=== PATIENT | female | born 1970 | race Caucasian/White ===

== ENCOUNTER 2017-06-07 17:09 | Emergency (ER) | payer OTHER ==
[~2017-06-07 17:09] MED LIST: Potassium Chloride LIQUID* 20 MEQ PACKET PO ONE
[2017-06-07] MEDS ORDERED: NS 0.9% 500 ML* 500 ML IV ONE (19:26)
[2017-06-07 19:51] LABS: ABS Basophils 0.1 10^3/ul (0-0.2); ABS Eosinophils 0.2 10^3/ul (0-0.6); ABS Lymphocytes 2.3 10^3/ul (1.0-4.8); ABS Monocytes 0.6 10^3/ul (0-0.8); ABS Neutrophils 5.4 10^3/ul (1.5-7.7); ABS Nucleated RBC 0 10^3/ul; Eosinophil % 2.1 % (0-6); Hematocrit 40 % (35-47); Hemoglobin 13.7 g/dl (12.0-16.0); Lymphocyte % 26.5 % (25-47); Mean Corpuscular HGB Conc 34 g/dl (31-36); Mean Corpuscular Hemoglobin 31 pg (27-31); Mean Corpuscular Volume 89 fL (80-97); Mean Platelet Volume 7 um3 (7.4-10.4); Nucleated Red Blood Cells % 0; Platelet Count 274 10^3/ul (150-450); Red Blood Count 4.48 10^6/ul (4.0-5.4); Red Cell Distribution Width 13 % (10.5-15); White Blood Count 8.5 10^3/ul (3.5-10.8)
[2017-06-07 19:57] LABS: INR 0.81 (0.77-1.02)
[2017-06-07 20:05] LABS: EGFR Non-African American 81.1 (>60)
[2017-06-07] MEDS ORDERED: Potassium Chloride LIQUID* 20 MEQ PACKET PO ONE (21:00)
--- NOTE | 2017-06-07 21:18 | RAD ---
INDICATION: Rectal bleeding COMPARISON: None TECHNIQUE: Erect and supine views of the abdomen are submitted. FINDINGS: Bones: There are no acute bony findings. Soft tissues: The soft tissues appear normal. The psoas margins are sharp. Bowel gas pattern: Normal Calcifications: There are no abnormal calcifications. Other: None IMPRESSION: NO ACUTE DIAGNOSTIC FINDINGS.
[2017-06-08] MEDS ORDERED: Iohexol 300* (CONTRAST) 10 ML SDV IV ONE (01:48)
[2017-06-08 03:21] VITALS: BP 112/74
--- NOTE | 2017-06-08 08:12 | RAD ---
INDICATION: Bloody stools. RIGHT-sided abdominal pain. Previous abscess excision at the midline abdomen inferior to the umbilicus. COMPARISON: Abdomen radiograph of one day prior. TECHNIQUE: Multidetector CT images were obtained from the lung bases to the ischial tuberosities with 90 mL Omnipaque 300 IV and oral contrast. Multiplanar reformation. REPORT: Unremarkable visualized inferior thorax. Decreased density of the liver consistent with fatty infiltration. No focal hepatic lesions or biliary dilatation. Post cholecystectomy. Unremarkable pancreas and spleen. Negative for CT abnormality of the upper GI or small bowel. Normal diameter appendix without suggestion of mural calcification in the mid segment. Nonetheless the appendix is opacified with contrast and contains gas extending to the tip. Negative for periappendiceal inflammatory change. Enteric contrast extends to the rectum. No CT abnormality of the colon. Negative for ascites, free air, hernias. Normal adrenal glands. Unremarkable kidneys with symmetric nephrograms and pyelograms. Unremarkable nondilated ureters and urinary bladder as well as the anteverted uterus and adnexal regions. Normal sized periaortic lymph nodes visualized measuring up to 0.7 cm short axis. Negative for lymphadenopathy. Normal diameter abdominal aorta and iliac arteries. Physiologic distention of the IVC. Lumbar sacral spine degenerative spondylosis most prominent at L4-L5 without suggestion of acquired central canal stenosis. Mild bilateral L4-L5 foraminal stenosis secondary to degenerative spondylosis. Negative for suspicious focal osseous lesions. IMPRESSION: 1. Fatty infiltration of the liver. 2. Post cholecystectomy. 3. Suggestion of potential mural calcification of the normal diameter appendix without evidence for acute appendicitis. 4. Absence of stool within the colon may reflect diarrhea of disease. Negative for colonic inflammatory change or conspicuous focal lesion.
--- NOTE | 2017-06-24 01:24 | ED ---
Tri David Emily, scribed for Riky Allison MD on 06/07/17 at 1922 . GI/ HPI - HPI Summary HPI Summary: This patient is a 46 year old F presenting to [facility] accompanied by family with a chief complaint of hematochezia and increased bowel movement frequency that began yesterday. The patient rates the pain 8/10 in severity. Symptoms aggravated by nothing. Symptoms alleviated by nothing. Patient reports nausea, lightheadedness, suprapubic abdominal pain, and fatigue. Patient denies fever, chills, and vomiting. Pt denies having similar symptoms previously. - History of Current Complaint Chief Complaint: EDRectalPain Stated Complaint: RECTAL BLEEDING,LIGHTHEADEDNESS Hx Obtained From: Patient Onset/Duration: Started Days Ago, Still Present Timing: Constant, Lasting Days Severity: Severe Current Severity: Severe Pain Intensity: 8 Location of Pain: Suprapubic Associated Signs and Symptoms: Positive: Other: - Positive nausea, lightheadedness, suprapubic abdominal pain, and fatigue. Negative fever, chills , and vomiting Aggravating Factor(s): Nothing Alleviating Factor(s): Nothing - Allergy/Home Medications Allergies/Adverse Reactions: Allergies Allergy/AdvReac Type Severity Reaction Status Date / Time No Known Allergies Allergy Verified 06/07/17 19:00 Home Medications: Home Medications FLUoxetine CAP* [PROzac CAP*] 40 mg PO DAILY 06/07/17 [History Confirmed ] Levothyroxine TAB* [Synthroid TAB*] 75 mcg PO DAILY 06/07/17 [History Confirmed 06/07/17] PMH/Surg Hx/FS Hx/Imm Hx Previously Healthy: No Opthamlomology History: Denies: Hx Legally Blind EENT History: Denies: Hx Deafness - Surgical History Surgery Procedure, Year, and Place: Abdominal abscess removal. - Immunization History Immunizations Up to Date: Yes Infectious Disease History: No Infectious Disease History: Denies: Traveled Outside the [place] in Last 30 Days - Family History Family History: IBS. Colitis - Social History Occupation: Employed Full-time Lives: Alone Alcohol Use: Occasionally Substance Use Type: Reports: None Smoking Status (MU): Never Smoked Tobacco Review of Systems Positive: Fatigue. Negative: Fever, Chills Positive: Abdominal Pain, Nausea, Other - Positive hematochezia and increased bowel movement frequency. Negative: Vomiting Neurological: Other - Positive lightheadedness All Other Systems Reviewed And Are Negative: Yes Physical Exam - Summary Physical Exam Summary: Appearance: Well-appearing, Well-nourished Skin: Warm, Dry, No rash Eyes: Normal, PERRL, EOMI, sclera anicteric ENT: Normal Neck: Supple, nontender Respiratory: Clear to auscultation Cardiovascular: S1, S2, no murmur, no rub, no gallop Abdomen: Soft, no organomegaly, Mild tenderness in the lower abdomen Bowel sounds: Present Anal Exam: female RN present, No anal fistula. Tender on digital rectal exam. Unable to visually check rectum due to pain Musculoskeletal: Normal, Strength/ROM Intact, no edema, pulses symmetrical Neurological: Normal, A&Ox3, cranial nerves II-XII WNL, follows commands, gait not tested, sensation intact to pin and light touch Psychiatric: affect normal, behavior appropriate, dressed appropriately, judgment intact Triage Information Reviewed: Yes Vital Signs On Initial Exam: Initial Vitals Temp Pulse Resp BP Pulse Ox 97.2 F 74 19 151/91 98 06/07/17 17:12 06/07/17 17:12 06/07/17 17:12 06/07/17 17:12 06/07/17 17:12 Vital Signs Reviewed: Yes - Milind Coma Scale Coma Scale Total: 15 Diagnostics - Vital Signs Vital Signs Temp Pulse Resp BP Pulse Ox 06/07/17 17:12 97.2 F 74 19 151/91 98 - Laboratory Result Diagrams: 06/07/17 19:40 06/07/17 19:40 Lab Statement: Any lab studies that have been ordered have been reviewed, and results considered in the medical decision making process. - Radiology Abdomen XR Radiology Interpretation Completed By: ED Physician - Abdominal XR reveals, per ED physician, prominent small bowel loops. - CT CT abdomen and pelvis CT Interpretation Completed By: Radiologist - CT abdomen and pelvis reveals, per radiologist, possible diarrheal illness without bowel wall thickening. Fatty liver. ED physician has reviewed this radiology report. Re-Evaluation - Re-Evaluation First Eval Re-Evaluation Time: 22:00 Change: Unchanged - Pt is still experiencing pain and had another bloody bowel movement GIGU Course/Dx - Course Assessment/Plan: This patient is a 46 year old F presenting to [facility] accompanied by family with a chief complaint of hematochezia and increased bowel movement frequency that began yesterday. SHX abdominal abscess removal. FHX IBS and colitis. Physical Exam Findings. Mild tenderness in the lower abdomen. Anal exam. No anal fistula. Tender on digital rectal exam. Unable to visually check rectum due to pain. Abdominal XR reveals, per ED physician, prominent small bowel loops. Bloodwork obtained. In the ED course the patient was given fluids. CT abdomen and pelvis reveals, per radiologist, possible diarrheal illness without bowel wall thickening. Fatty liver. The patient will be discharged with follow up from PCP. The patient is agreeable with this plan. - Diagnoses Provider Diagnoses: colitis uncertain etiology , possible inflammatory bowel disease Discharge - Discharge Plan Condition: Stable Disposition: HOME Patient Education Materials: Colitis (ED) Referrals: Van Chan MD [Primary Care Provider] - 3 Days The documentation as recorded by the Tri banda Emily accurately reflects the service I personally performed and the decisions made by me, Riky Allison MD.
== END 2017-06-08 03:22 | disposition home or self-care (01) ==
LOC: ED 17:09
DX: K52.9 Noninfective gastroenteritis and colitis, unspecified (principal); R11.0 Nausea; R42 Dizziness and giddiness; R53.83 Other fatigue; R10.9 Unspecified abdominal pain
CPT/HCPCS: 36415; 74019; 74177; 80053; 85025; 85610; 86850; 86900; 86901; 96360; 99282; A9270-GY; Q9967

== ENCOUNTER 2018-09-02 18:59 | Emergency (ER) | payer OTHER ==
--- NOTE | 2018-09-02 19:14 | UC ---
General HPI - HPI Summary HPI Summary: Patient is a year 48 year old woman, who present today to the urgent care with right ear tick bite on the pinna that she noticed 1 hour prior to arrival. After the tick bite she started noticing cough, dizziness and some chest tightness. Increased area of redness in her upper back neck and the chest area- does not look like hives. She does not have any problems breathing or swallowing. she reports that she was working in her kitchen before the symptoms started and coughing got worse. Denies any abdominal pain , nausea or vomiting , diarrhea or constipation. - History of Current Complaint Chief Complaint: Ludmila Stated Complaint: TICK IN EAR, RASH, CHEST PAIN AND DIZZINESS Time Seen by Provider: 09/02/18 19:11 Hx Obtained From: Patient Hx Last Menstrual Period: <1 WEEK AGO Pain Intensity: 8 - Allergy/Home Medications Allergies/Adverse Reactions: Allergies Allergy/AdvReac Type Severity Reaction Status Date / Time No Known Allergies Allergy Verified 09/02/18 19:05 Home Medications: Home Medications Venlafaxine CAP (NF) [Effexor CAP (NF)] 150 mg PO DAILY 09/02/18 [History Confirmed 09/02/18] PMH/Surg Hx/FS Hx/Imm Hx - Additional Past Medical History Additional PMH: Anxiety Hypothyroidism Previously Healthy: Yes - Surgical History Surgical History: Yes Surgery Procedure, Year, and Place: UMILICAL HERNIA A CHILD,4 C- SECTIONS.TONSILS.MAURICIO.ABSCESS REMOVAL FROM LOWER ABD, APPENDECTOMY - Social History Alcohol Use: Occasionally Substance Use Type: None Smoking Status (MU): Never Smoked Tobacco Review of Systems All Other Systems Reviewed And Are Negative: Yes Constitutional: Positive: Negative Skin: Positive: Rash - area of erythema around her neck Eyes: Positive: Negative Respiratory: Positive: Cough - dry Cardiovascular: Positive: Other - chest tightness Gastrointestinal: Positive: Negative Genitourinary: Positive: Negative Motor: Positive: Negative Neurovascular: Positive: Negative Musculoskeletal: Positive: Negative Neurological: Positive: Negative Psychological: Positive: Negative Is Patient Immunocompromised?: No Physical Exam - Summary Physical Exam Summary: Physical Exam: Const: Appears well. No signs of apparent distress present. Alert and oriented x 3. Musculo: Walks with a normal gait. Head/Face: Atraumatic, normocephalic on inspection. Eyes: EOMI and PERRLA in both eyes. Conjunctivae clear. No discharge noted ENT: a small tick is noted attached to the end of the right ear. Hearing normal, TM normal appearing bilaterally No pharyngeal erythema or exudates . Uvula is midline. No cervical or submandibular lymphadenopathy noted. Respiratory: Respirations are unlabored. Lungs clear to auscultation bilaterally, no wheezing , rhonchi or rales noted . CVS: Regular rate and Rhythm, S1S2 normal , no murmurs identified. Extremities: Peripheral circulation is grossly normal. Pulses 2+ Abdomen : Soft non tender , nondistended , Bowel sounds present . No guarding , rebound tenderness or rigidity noted. Skin: no specific rash but erythema is noted around her neck and her upper back and chest . Neuro: Cranial nerves II to XII intact, motor and sensory intact. DTR Intact bilaterally. Mood is normal. Affect is normal. Triage Information Reviewed: Yes Vital Signs: Initial Vital Signs Temp 98.6 F 09/02/18 19:00 Pulse 82 09/02/18 19:00 Resp 16 09/02/18 19:00 BP 146/96 09/02/18 19:00 Pulse Ox 100 09/02/18 19:00 Vital Signs Reviewed: Yes Course/Dx - Course Course Of Treatment: During the visit today, he tick was removed with the help of tweezers. She was given a dose of Benadryl , IV Solu-Medrol and Tessalon, with relief of her symptoms. She was given 1 dose of doxycycline 200mg We discussed the findings and further plan. I will prescribe the medication to the pharmacy . Patient expressed understanding . - Diagnoses Provider Diagnosis: Tick bite of ear, Allergic reaction Discharge - Sign-Out/Discharge Documenting (check all that apply): Patient Departure All imaging exams completed and their final reports reviewed: No Studies - Discharge Plan Condition: Stable Disposition: HOME Prescriptions: Benzonatate CAP* [Tessalon 100 MG CAP*] 100 mg PO TID PRN 10 Days #30 cap PRN Reason: Cough predniSONE [Prednisone 20 MG TAB] 20 mg PO DAILY 5 Days #15 tablet raNITIdine HCl [Zantac] 150 mg PO BID 7 Days #14 tablet Patient Education Materials: Lyme Disease (ED), Tick Bite (ED), General Allergic Reaction (ED) Referrals: Van Chan MD [Primary Care Provider] - 2 Days Carroll Tilley MD [Medical Doctor] - 1 Week Additional Instructions: Please start taking the medication as prescribed to the pharmacy . . Prescribed prednisone, Zantac, tessalon Also take Benadryl 50 mg every 6 hours as needed. Follow up with your primary care doctor in 2 days Also follow up with lan support specialist. Patients blood pressure slightly high in Urgent care today , plan follow up with PCP for better control Return to Urgent care / ER if symptoms get worse. - Billing Disposition and Condition Condition: STABLE Disposition: Home
[2018-09-02] MEDS ORDERED: methylPREDNISolone 125 MG* 2 ML VIAL IM ONE (19:16)
[2018-09-02] MEDS ORDERED: diPHENhydraMINE PO* 50 MG PO ONE (19:16)
[2018-09-02] MEDS ORDERED: Benzonatate CAP* 100 MG PO ONE (19:22)
[2018-09-02] MEDS ORDERED: DOXYcycline CAP(*) 100 MG PO ONE (20:18)
[2018-09-02 21:30] VITALS: BP 120/90
== END 2018-09-02 21:27 | disposition home or self-care (01) ==
LOC: UCEAST 18:59
DX: T63.481A Toxic effect of venom of other arthropod, accidental (unintentional), initial encounter (principal); S00.461A Insect bite (nonvenomous) of right ear, initial encounter; W57.XXXA Bitten or stung by nonvenomous insect and other nonvenomous arthropods, initial encounter; Y92.9 Unspecified place or not applicable
CPT/HCPCS: 96372; 99212; A9270-GY; G0463; J2930